=== PATIENT | male | born 1960 | race Native Hawaiian/Other Pacific Islander ===

== ENCOUNTER 2022-06-30 12:30 | Emergency (ER) | payer OTHER ==
[~2022-06-30] VITALS: Ht 180.3 cm; Wt 113.4 kg
[2022-06-30 12:30] VITALS: BP 137/82; TEMP 98
[2022-06-30 13:21] LABS: PLATELET COUNT 166 K/uL (142-355)
[2022-06-30 13:28] LABS: POTASSIUM 4.2 mmol/L (3.6-5.2)
== END 2022-06-30 17:49 | disposition home or self-care (01) ==
LOC: ED 12:46
PROVIDERS: Emergency Medicine Emergency Medical Services
DX: Z87.898 Personal history of other specified conditions (principal); F32.A Depression, unspecified; Z20.822 Contact with and (suspected) exposure to COVID-19
CPT/HCPCS: 80053; 80143; 80179; 80307; 80320; 81002; 85027; 87635; 93005; 99285; U0003